=== PATIENT | female | born 1945 | race Caucasian/White ===

== ENCOUNTER 2018-02-11 11:54 | Day surgery (SDC) | payer BC ==
[2018-02-11] MEDS ORDERED: PROPOFOL 60 ML (13:27)
[2018-02-11] MEDS ORDERED: LIDOCAINE 2% (SDV) 5 ML INJ (13:27)
== END 2018-02-11 15:33 | disposition home or self-care (01) ==
LOC: GIL 11:54
DX: D12.0 Benign neoplasm of cecum (principal); D12.4 Benign neoplasm of descending colon; K63.89 Other specified diseases of intestine; I10 Essential (primary) hypertension; E66.9 Obesity, unspecified; Z68.29 Body mass index [BMI] 29.0-29.9, adult
CPT/HCPCS: 43239; 88305